=== PATIENT | male | born 1940 | race Caucasian/White ===

== ENCOUNTER → 2016-03-10 | Day surgery (SDC) | payer MEDICARE, BC, SELFPAY ==
--- NOTE | 2016-03-07 23:07 | Pre-op HX & Phy Repo 2 SIG ---
DATE OF ADMISSION: 03/10/2016 HISTORY OF PRESENT ILLNESS: The patient is a 75-year-old, HIV positive white male, who will undergo cataract removal under general anesthesia. The patient has multiple medical problems as will be detailed below. 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 He underwent preliminary attempt to remove the cataract in the left eye in November 2015 as an outpatient. However, he developed a restless leg and moves excessively and the procedure could not be performed. Anesthesiology was reluctant to perform general anesthesia on outpatient basis, therefore, admitted for inpatient with the removal of the cataract. His recent health has been fair, however, his blood pressure has been labile ranging from 98/62 to 176/100, without significant symptomatology. Other medical problems include PET brain scan showing multiple regional abnormalities most consistent with vascular. He has a left-sided moderate hydroureteronephrosis, which is chronic. He has old rib fractures, bilateral renal cysts, asymptomatic gallstones all seen on CT chest. PAST MEDICAL HISTORY: Include unspecified central hypertension, human immunodeficiency virus infection, thrombophlebitis and pulmonary embolism, transient ischemic attack, history of carotid endarterectomy, history of coronary artery bypass surgery, presence of inferior vena cava filter, hyperlipidemia, dyspnea, depression, obesity, retroperitoneal hematoma secondary to Coumadin subsequently discontinued, and episode of acute renal failure. PAST SURGICAL HISTORY: Coronary artery bypass graft in August 2006 and carotid endarterectomy. SMOKING STATUS: He was never a smoker. FAMILY HISTORY: Positive for cancer in his mother. Heart disease in his father and brother and cancer in his sister. SOCIAL HISTORY: He is homosexual and lives with his friend Manjeet Schuster. CURRENT MEDICATIONS: Include oxycodone 5 mg daily p.r.n. pain, atorvastatin 40 mg p.o. daily, Cymbalta 60 mg p.o. daily, Epivir 300 mg daily, aspirin 81 mg daily, Avodart 0.5 mg daily, Reyataz 200 mg twice daily, Isentress 400 mg twice daily, 12.5 mg daily, nitroglycerin 0.4 mg sublingual p.r.n., and Eliquis 5 mg daily. ALLERGIES: Iodinated contrast media vaccination. He received influenza vaccine in December 2015. PHYSICAL EXAMINATION: VITAL SIGNS: Heart rate 73 per minute, regular, blood pressure 125/82, weight is 238 pounds, and respirations 16. HEENT: Remarkable for cataracts. NECK: Supple. LUNGS: Clear. HEART: There is a grade 3 aortic murmur. No gallop or rub. EXTREMITIES: Negative for calf tenderness, clubbing, or edema. ASSESSMENT: 1. Bilateral cataract. 2. Human immunodeficiency virus disease. 3. Hypertension. 4. Hyperlipidemia. 5. Status post pulmonary embolism and inferior vena cava filter. 6. Status post renal insufficiency with creatinine 5.6. 7. Status post coronary bypass surgery. 8. Status post carotid endarterectomy. The patient is at high risk. However, he is medically cleared for cataract surgery under general anesthesia. Blood pressure monitoring and control will be a challenging so far as his blood pressure fluctuates quite widely with systolics as low as 90 and as high as 176. He presently has no symptoms of congestive heart failure or angina. Gage Bledsoe M.D. DR: BETH JOB#: [id number] CC:
[~2016-03-10] VITALS: Ht 182.9 cm; Wt 108.0 kg
[~2016-03-10] MED LIST: ASPIR 8181 MG ORAL; AVODART0.5 MG ORAL; Acetylcholine Injection (OR) ONE; BSS 15ml BTL ONE; BSS 500ml btl ONE; Bupivacaine 0.75% 30ml vial INJ ONE; CYMBALTA60 MG ORAL; Carbachol 0.01% Op Soln 1.5ml vial ONE; Cyclopentolate 1% Opth Sol ONE; Dexamethasone 4mg/ml vial ONE; ELIQUIS5 MG PO; EPINEPHrine 1mg/1ml Amp ONE; EPIVIR150 MG ORAL; Fluorescein Strips ONE; Gatifloxacin Opth Solution 0.5% ONE; Healon Duet Dual Pack ONE; ISENTRESS100 MG ORAL; LIPITOR40 MG ORAL; Lidocaine 1% MPF 10mg/ml 5ml ONE; Lidocaine 2% MPF 5ml Vial INJ ONE; Lidocaine 4% Amp ONE; MOVANTIK12.5 MG PO; Maxitrol Opth Oint 3.5gm ONE; NITROGLYCERIN0.4 MG SL; OXYCONTIN10 MG ORAL; Phenylephrine 2.5% Op Soln ONE; Povidone-Iodine 5% opth solution ONE; REYATAZ300 MG ORAL; ROXICODONE15 MG ORAL; SALAGEN7.5 MG PO; TAMSULOSIN HCL0.4 MG ORAL; Tetracaine 0.5% Opth Soln ONE; ZOFRAN4 M3 ORAL
[2016-03-10] MEDS: Tetracaine 0.5% Opth Soln RIGHT EYE SCH ×3 (08:10→08:28)
[2016-03-10] MEDS: Phenylephrine 2.5% Op Soln RIGHT EYE SCH ×3 (08:10→08:27)
[2016-03-10] MEDS: Cyclopentolate 1% Opth Sol RIGHT EYE SCH ×3 (08:11→08:27)
[2016-03-10] MEDS: Gatifloxacin Opth Solution 0.5% RIGHT EYE SCH ×3 (08:12→08:28)
[2016-03-10 08:22] VITALS: BP 143/71
== END | disposition home or self-care (01) ==
LOC: SUR 07:28
DX: H26.9 Unspecified cataract (principal); H52.201 Unspecified astigmatism, right eye; Z53.09 Procedure and treatment not carried out because of other contraindication; I25.10 Atherosclerotic heart disease of native coronary artery without angina pectoris; Z95.1 Presence of aortocoronary bypass graft; I10 Essential (primary) hypertension; G25.81 Restless legs syndrome; N13.39 Other hydronephrosis; N28.1 Cyst of kidney, acquired; K80.80 Other cholelithiasis without obstruction; E78.5 Hyperlipidemia, unspecified; R06.00 Dyspnea, unspecified; F32.9 Major depressive disorder, single episode, unspecified; E66.9 Obesity, unspecified; Z68.32 Body mass index [BMI] 32.0-32.9, adult; I35.8 Other nonrheumatic aortic valve disorders; K59.00 Constipation, unspecified; R00.1 Bradycardia, unspecified; N40.0 Benign prostatic hyperplasia without lower urinary tract symptoms; Z88.7 Allergy status to serum and vaccine; Z91.041 Radiographic dye allergy status; Z86.711 Personal history of pulmonary embolism; Z86.73 Personal history of transient ischemic attack (TIA), and cerebral infarction without residual deficits
CPT/HCPCS: J0171; J3370